=== PATIENT | male | born 1950 | race Caucasian/White ===

== ENCOUNTER → 2017-08-05 | Outpatient (CLI) | payer MEDICARE, OTHER ==
[~2017-08-05] MED LIST: NORCO 325 MG-101 TAB PO; PROAIR HFA0.09 MG/AC IH; QVAR0.08 MG/AC IH; TENORMIN 2525 MG/TAB PO; XANAX 1MG1 MG PO
== END ==
LOC: COL.PUL 12:57
DX: R06.02 Shortness of breath (principal)

== ENCOUNTER → 2018-06-07 | Outpatient (CLI) | payer MEDICARE, OTHER | LOC: COL.VAS 09:00 | DX: I35.1 Nonrheumatic aortic (valve) insufficiency (principal); I34.0 Nonrheumatic mitral (valve) insufficiency ==

== ENCOUNTER → 2020-03-06 | Outpatient (CLI) | payer MEDICARE, OTHER | LOC: ZCOL.LAB 07:13 | DX: R50.9 Fever, unspecified (principal); Z20.828 Contact with and (suspected) exposure to other viral communicable diseases ==